=== PATIENT | male | born 1950 | race Hispanic/Latino ===

== ENCOUNTER 2021-01-16 07:30 | Day surgery (SDC) | payer MEDICARE ==
[2021-01-12 13:23] LABS: Mean Corpuscular HGB Conc 33 % (32-34); Mean Corpuscular Volume 91 fl (84-94); Platelet Count 262 K/mm3 (140-440); Red Blood Count 4.29 M/mm3 (3.65-5.03); Red Cell Distribution Width 13.6 % (13.2-15.2)
[2021-01-12 15:15] LABS: Alanine Aminotransferase 19 units/L (7-56); Albumin 4.2 g/dL (3.9-5); BUN/Creatinine Ratio 24; Blood Urea Nitrogen 19 mg/dL (9-20); Calcium 9.4 mg/dL (8.4-10.2); Hemolysis Index 7
[~2021-01-16 07:30] MED LIST: SODIUM CHLORIDE 0.9% 1000 ML IV SOLN IJ ONE; SODIUM CHLORIDE 0.9% IRRIG SOLN 2000 ML IR ONE; WATER FOR IRRIG STERILE 1,500 ML BOTTLE IR ONE
[2021-01-16] MEDS ORDERED: ONDANSETRON 4 MG/2 ML INJ IV PRN (08:32)
[2021-01-16] MEDS ORDERED: HYDROmorphone 1 MG/1 ML INJ IV PRN ×2 (08:32)
--- NOTE | 2021-01-16 08:33 | Anesthesia Day of Surgery ---
Anesthesia Day of Surgery - Day of Surgery Patient Examined: Yes Patient H&P Reviewed: Yes Patient is NPO: Yes
--- NOTE | 2021-01-16 08:34 | Anesthesia Consultation ---
Anesthesia Consult and Med Hx Date of service: 01/16/21 - Airway Anesthetic Teeth Evaluation: Bridges ROM Head & Neck: Adequate Mental/Hyoid Distance: Adequate Mallampati Class: Class IV Intubation Access Assessment: Possibly Difficult - Pre-Operative Health Status ASA Pre-Surgery Classification: ASA2 Proposed Anesthetic Plan: General - Pulmonary Hx Smoking: No Hx Respiratory Symptoms: No (+2FS) Hx Sleep Apnea: No (DENISE PRE SCREEN HIGH RISK) - Cardiovascular System Hx Hypertension: Yes Hx Heart Attack/AMI: No - Central Nervous System Hx Seizures: No Hx Back Pain: Yes Hx Psychiatric Problems: No - Gastrointestinal Hx Gastroesophageal Reflux Disease: No - Endocrine Hx End Stage Renal Disease: No Hx Non-Insulin Dependent Diabetes: Yes - Hematic Hx Anemia: No Hx Sickle Cell Disease: No - Other Systems Hx Alcohol Use: No Hx Substance Use: No Hx Cancer: No
[2021-01-16] MEDS ORDERED: propofoL 200 MG/20 ML VIAL IV ONE (08:43)
[2021-01-16] MEDS ORDERED: LIDOCAINE MPF (2%) 20 MG/1 ML VIAL 5 ML ONE (08:43)
[2021-01-16] MEDS ORDERED: ceFAZolin/Water 2 GM/20 ML 2 GM/20 ML SYRINGE IV NR (08:52)
[2021-01-16] MEDS ORDERED: LACTATED RINGERS 1,000 ML IV SCH (09:00)
[2021-01-16] MEDS: MIDAZOLAM 2 MG/2 ML INJ IV NR ×2 (09:08→10:35)
[2021-01-16] MEDS ORDERED: SODIUM CHLORIDE 0.9% 1000 ML 1,000 ML ONE (10:24)
[2021-01-16] MEDS ORDERED: HYDROmorphone 1 MG/1 ML INJ ONE (10:46)
[2021-01-16] MEDS ORDERED: SODIUM CHLORIDE 0.9% 1000 ML IV SOLN IJ ONE (11:06)
[2021-01-16] MEDS ORDERED: WATER FOR IRRIG STERILE 1,500 ML BOTTLE IR ONE (11:06)
[2021-01-16] MEDS ORDERED: SODIUM CHLORIDE 0.9% IRRIG SOLN 2000 ML IR ONE (11:06)
--- NOTE | 2021-01-16 11:41 | Post Operative Note ---
Date of procedure: 01/16/21 Pre-op diagnosis: bph Post-op diagnosis: same Findings: bph Procedure: cysto rezum Anesthesia: GETArianna Surgeon: SHELDON HYDE Estimated blood loss: none Pathology: none Condition: stable Disposition: PACU
--- NOTE | 2021-01-16 11:45 | Discharge Summary ---
Short Stay Discharge Plan Activity: other Weight Bearing Status: Full Weight Bearing Diet: low fat, low cholesterol, low salt Special Instructions: other (inc fluids ) Durable Medical Equipment Needed Upon Discharge: other (teach cath care ) Follow up with: ZARINA TRAN MD [Primary Care Provider] - 7 Days
[2021-01-16] MEDS ORDERED: BACITRACIN ZINC OINT 28.4 GM TP ONE (12:35)
[2021-01-16 12:37] VITALS: BP 130/72
--- NOTE | 2021-01-16 13:53 | Post Anesthesia Evaluation ---
- Post Anesthesia Evaluation Patient Participated: Yes Airway Patent: Yes Stable Respiratory Function: Yes Nausea/Vomiting: No Temp > 96.8F: Yes Pain Manageable: Yes Adequeate Hydration: Yes Anesthesia Complications: No Block Receding Appropriately: Not Applicable Patient on Ventilator: No
--- NOTE | 2021-01-16 13:56 | Operative Report ---
DATE OF SURGERY: 01/16/2021 PREOPERATIVE DIAGNOSES: Bladder outlet obstruction, prominent prostate lateral lobes. POSTOPERATIVE DIAGNOSES: Bladder outlet obstruction, prominent prostate lateral lobes. PROCEDURE PERFORMED: Cystoscopy, resume therapy. SURGEON: Herve Gtz M.D. ANESTHESIA: General. FINDINGS: This is a gentleman with bladder outlet obstruction, now presents for Rezum therapy. All risks and implications were discussed. DESCRIPTION OF PROCEDURE: The patient was brought to the operating room and placed on the operating table. Following induction of anesthesia, placed in lithotomy position, prepped and draped in usual sterile fashion. Cystourethroscopy showed a slightly narrowed urethra. No definitive strictures. There was bilobar hypertrophy. The bladder was 2+ trabeculated. Bladder was well visualized with 30- and 70-degree lenses. At this point, the Rezum device was primed and 2 sticks on each side were carried out. The patient tolerated the procedure well. No significant complication. An 18-coude easily went in the bladder, irrigated clear, brought to recovery in stable condition. TID: [id number] RECEIPT: [id number] REYES/KOBY/EMI
== END 2021-01-16 07:31 | disposition home or self-care (01) ==
LOC: OR 07:30
PROVIDERS: ATTEND Urology
DX: N13.9 Obstructive and reflux uropathy, unspecified (principal); Z20.822 Contact with and (suspected) exposure to COVID-19; I10 Essential (primary) hypertension; E11.9 Type 2 diabetes mellitus without complications; Z79.899 Other long term (current) drug therapy; Z88.8 Allergy status to other drugs, medicaments and biological substances; Z98.890 Other specified postprocedural states
CPT/HCPCS: 36415; 53854; 80053; 82962; 85027; A4217; J1170; J2250; J2704; J7030; J7120; U0003